=== PATIENT | female | born 1945 | race Caucasian/White ===

== ENCOUNTER 2018-03-21 10:57 | Outpatient (CLI) | payer BC | END 2018-03-21 10:58 | disposition home or self-care (01) | LOC: BICMAMMO 10:57 | PROVIDERS: ATTEND Family Medicine | DX: Z12.31 Encounter for screening mammogram for malignant neoplasm of breast (principal); Z80.3 Family history of malignant neoplasm of breast | CPT/HCPCS: 77063; 77067 ==

== ENCOUNTER 2018-06-17 14:02 | Outpatient (CLI) | payer BC ==
[~2018-06-17 14:02] MED LIST: Iopamidol 370 76% 100 ML VIAL ONE
--- NOTE | 2018-06-17 17:39 | CT ---
CT ABDOMEN WITH AND WITHOUT CONTRAST CT PELVIS WITH AND WITHOUT CONTRAST: (CT UROGRAM) Date: 06/17/18 HISTORY: 73-year-old female with history of both gross and microscopic hematuria. Dr. Miller reported the right renal tumor by telephone to Dr. Justin Del Castillo at 1556 hours on 06/17/18. TECHNIQUE: Precontrast, nephrographic/venous phase, and excretory/pyelographic stage, scans of entire abdomen an d pelvis. FINDINGS: There is an approximately 4.5 x 5 x 5 cm solid soft tissue density mass filling the right renal upper and mid poles of the renal sinus, with densities of approximately 45 HU precontrast, 85 HU nephrogra phic/venous phase, and washout during excretory phase with density of 70 HU. The mass has lobular mar gins. No associated calcifications. There is a 4.5 x 3.5 x 3 cm right renal upper pole cyst, which is partially distorted by that renal m ass. No hydronephrosis bilaterally. No renal, ureteral, or bladder calculus. Mild irregularity of the mucosal surface of the urinary bladder diffusely. 4.5 cm cyst at dome of right lobe of liver. No other hepatic abnormality. Pancreas, adrenals, abdomin al aorta, spleen, and left kidney, and appendix demonstrate no major pathology. Numerous diverticula throughout the entire colon. No small bowel dilation. No retroperitoneal lymphadenopathy. The right r enal vein drapes anterior to the lower portion of the right renal upper pole cyst. It does not appear to be occluded; no evidence of tumor thrombus. No free fluid or free air. Absent uterus. Enlarged left L5 transverse process pseudoarticulates with left S1 ala, and there are high grade dege nerative changes at that pseudoarticulation. IMPRESSION: 1. Approximately 5 cm solid, neoplastic right renal mass, very suspicious for renal cell carcinoma. 2. 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 CODE CR.
== END 2018-06-17 14:03 | disposition home or self-care (01) ==
LOC: BICCT 14:02
PROVIDERS: ATTEND Urology
DX: R31.0 Gross hematuria (principal); R31.29 Other microscopic hematuria; N28.89 Other specified disorders of kidney and ureter; M47.897 Other spondylosis, lumbosacral region
CPT/HCPCS: 74178; 82565

== ENCOUNTER 2018-07-01 20:23 | Emergency (ER) | payer BC, MEDICARE ==
[2018-07-01 21:10] LABS: Bilirubin Small (Negative); Blood, Urine Large (Negative); Clarity Cloudy (Clear); Glucose, Urine (Dipstick) Negative (Negative)
[2018-07-01 21:11] LABS: Nitrite Unable to Interpret (Negative)
[2018-07-01 21:12] LABS: Leukocyte Small (Negative); Protein, Urine (Dipstick) 100 mg/dL (Neg-Trace)
[2018-07-01 21:13] LABS: Pathc Cast-AUWi Flag 23.84 (0-2.49)
[2018-07-01 21:14] LABS: RBC/HPF GREATER THAN 50-TNTC HPF (0-3)
[2018-07-01 21:15] LABS: Bacteria/HPF 1+ HPF (None Seen); Hyaline Casts/LPF NONE SEEN LPF (0-3 Hyaline); Squamous Epithelial 0-3 HPF (0-3)
[2018-07-01 21:27] LABS: #Basophils 0.1 thou/uL (0.0-0.2); #Eosinphils 0.1 thou/uL (0.0-0.7); #Lymphocytes 1.9 thou/uL (1.20-3.40); #Monocytes 0.4 thou/uL (0.11-0.59); #Neutrophils 4.1 thou/uL (1.40-6.50); %Basophils 0.9 % (0.0-1.0); %Eosinophils 1.7 % (0.0-10.0); %Lymphocytes 28.6 % (21.0-51.0); %Monocytes 6.6 % (0.0-10.0); %Neutrophils 62.2 % (42.0-75.0); Hemoglobin 14.1 g/dL (12.0-16.0); Mean Corpuscular HGB CONC 32.1 g/dL (32.0-36.0); Mean Corpuscular Hemoglobin 27.2 pg (27.0-31.0); Mean Corpuscular Volume 84.8 fL (78.0-98.0); Mean Platelet Volume 7.7 fL (7.4-10.4); Platelet Count 262 thou/uL (130-400); RBC Distribution Width 12.1 % (11.5-14.5); Red Blood Cell (RBC) Count 5.18 mill/uL (4.20-5.40); White Blood Cell (WBC) Count 6.6 thou/uL (4.8-10.8)
[2018-07-01 21:56] LABS: ALT (SGPT) 13 U/L (8-55); AST (SGOT) 16 U/L (5-34); Albumin 4.2 g/dL (3.4-4.8); Alkaline Phosphatase 73 U/L (40-150); Anion Gap 14 mmol/L (10-20); BUN (Urea Nitrogen) 18 mg/dL (9.8-20.1); Bilirubin, Total 0.4 mg/dL (0.2-1.2); Calc. Creatinine Clearance 0 mL/min (70-130); Carbon Dioxide 23 mmol/L (23-31); Chloride 108 mmol/L (98-107); Estimated GFR-MDRD 64; Globulin 3.4 g/dL (2.4-3.5); Glucose 164 mg/dL (83-110); Potassium 3.6 mmol/L (3.5-5.1); Protein, Total 7.6 g/dL (6.0-8.3); Sodium 141 mmol/L (136-145)
== END 2018-07-01 23:45 | disposition left against medical advice (07) ==
LOC: ERS 20:23
DX: R33.9 Retention of urine, unspecified (principal); R31.9 Hematuria, unspecified; C64.9 Malignant neoplasm of unspecified kidney, except renal pelvis; E11.9 Type 2 diabetes mellitus without complications; I10 Essential (primary) hypertension; E78.00 Pure hypercholesterolemia, unspecified; F32.9 Major depressive disorder, single episode, unspecified; Z79.899 Other long term (current) drug therapy; Z79.84 Long term (current) use of oral hypoglycemic drugs
CPT/HCPCS: 51702; 80053; 81003; 81015; 85025; 87086

== ENCOUNTER 2019-01-14 12:39 | Observation (INO) | payer BC, MEDICARE ==
[2019-01-14] MEDS ORDERED: Aspirin Chewable 81 MG TAB ONE (13:26)
[2019-01-14] MEDS ORDERED: Magnesium 2 GM/50 ML BAG (IN WATER) ONE (13:26)
[2019-01-14] MEDS ORDERED: Digoxin 0.5 MG/2 ML AMP ONE (13:29)
[2019-01-14 13:40] LABS: #Eosinphils 0.2 thou/uL (0.0-0.7); #Lymphocytes 1.4 thou/uL (1.20-3.40); #Monocytes 0.4 thou/uL (0.11-0.59); #Neutrophils 3.8 thou/uL (1.40-6.50); %Basophils 0.2 % (0.0-1.0); %Eosinophils 3.8 % (0.0-10.0); %Lymphocytes 23.7 % (21.0-51.0); %Monocytes 7.6 % (0.0-10.0); %Neutrophils 64.7 % (42.0-75.0); Hemoglobin 12.9 g/dL (12.0-16.0); Mean Corpuscular HGB CONC 32.5 g/dL (32.0-36.0); Mean Corpuscular Hemoglobin 26.1 pg (27.0-31.0); Mean Corpuscular Volume 80.3 fL (78.0-98.0); Mean Platelet Volume 7.7 fL (7.4-10.4); Platelet Count 261 thou/uL (130-400); RBC Distribution Width 14.9 % (11.5-14.5); Red Blood Cell (RBC) Count 4.94 mill/uL (4.20-5.40); White Blood Cell (WBC) Count 5.8 thou/uL (4.8-10.8)
--- NOTE | 2019-01-14 13:54 | RAD ---
AP view chest. HISTORY: Chest pain. AP view chest is obtained. Degenerative changes seen in the left shoulder. The lungs are well aerated. No evidence of active intrathoracic disease seen. No evidence of effusion s pneumonia or pneumothorax seen. Cardiomegaly noted. IMPRESSION: Unremarkable AP view chest.
[2019-01-14 14:02] LABS: ALT (SGPT) 13 U/L (8-55); AST (SGOT) 14 U/L (5-34); Albumin 3.9 g/dL (3.4-4.8); Alkaline Phosphatase 108 U/L (40-150); Anion Gap 16 mmol/L (10-20); BUN (Urea Nitrogen) 18 mg/dL (9.8-20.1); Bilirubin, Total 0.4 mg/dL (0.2-1.2); CK (CPK) 42 U/L (29-168); Calc. Creatinine Clearance 0 mL/min (70-130); Calcium 9.8 mg/dL (7.8-10.44); Carbon Dioxide 23 mmol/L (23-31); Chloride 99 mmol/L (98-107); Estimated GFR-MDRD 46; Globulin 3.5 g/dL (2.4-3.5); Glucose 118 mg/dL (83-110); Lipase 30 U/L (8-78); Potassium 4.1 mmol/L (3.5-5.1); Protein, Total 7.4 g/dL (6.0-8.3); Sodium 134 mmol/L (136-145)
[2019-01-14 14:22] LABS: CKMB 0.8 ng/mL (0-6.6)
[2019-01-14] MEDS ORDERED: Diltiazem 125 MG in Sodium Chloride 0.9% 100 ML IVPB SCH ×3 (14:30→20:50)
[2019-01-14 15:54] LABS: Bilirubin Negative (Negative); Blood, Urine Negative (Negative); Clarity CLEAR (Clear); Glucose, Urine (Dipstick) Negative (Negative); Leukocyte Small (Negative); Nitrite Negative (Negative); Protein, Urine (Dipstick) Negative (Neg-Trace); Specific Gravity, Urine 1.009 (1.002-1.036); Urobilinogen 0.2 mg/dL (0.2-1.0); pH, Urine 5.5 (5.0-9.0)
[2019-01-14 15:56] LABS: Bacteria/HPF None Seen HPF (None Seen); Hyaline Casts/LPF 0-3 HYALINE CAST LPF (0-3 Hyaline); Pathc Cast-AUWi Flag 0.54 (0-2.49); RBC/HPF 0-3 HPF (0-3); Squamous Epithelial 0-3 HPF (0-3)
--- NOTE | 2019-01-14 16:03 | CT ---
Contrast-enhanced CTA chest. HISTORY: Tachycardia patient complaining of chest tightness There is a large sliding hiatal hernia. No evidence of filling defects seen in the pulmonary arteries to suggest pulmonary emboli. No definite evidence of lung parenchymal lesions seen. Some lung lung emphysematous changes are noted . No evidence of hilar lymphadenopathy seen. Hepatic hypodense lesion likely representing a cyst is present. Adrenal glands unremarkable. The patient's had a previous right-sided nephrectomy. IMPRESSION: 1: No evidence of pulmonary emboli. 2: Hiatal hernia.
[2019-01-14] MEDS ORDERED: ISOVUE-370 76%-LOCM 1 ML ONE (16:53)
[2019-01-14] MEDS ORDERED: cefTRIAXone\\ROCEPHIN 1 GM VIAL ONE (17:01)
[2019-01-14] MEDS ORDERED: Acetaminophen 325 MG TAB PO PRN (17:26)
--- NOTE | 2019-01-14 18:24 | HP ---
CHIEF COMPLAINT: Chest tightness. HISTORY OF PRESENT ILLNESS: This is a 73-year-old female with history of kidney cancer, status post nephrectomy in September 2018; SVT, status post ablation; diabetes; hypertension, who presents to the emergency room with a complaint of rapid heart rate and chest tightness. She reports the onset today around 9:00 a.m. and states it felt similar to SVT in the past. The patient reports initially noticing her heart rate was around 98, and then as she monitored it, it kept going up to 110 and eventually up to the 160s. She had family members drive her to the emergency room. Since her ablation, she has had no further episodes of SVT and estimates that was 1 to 2 years ago. She had chills last night, but denies any fevers. She also denies any precipitants or relieving factors. The patient has a history of atrial fibrillation that was evaluated and managed at [facility] and attributed to a urinary tract infection. This was in July of 2018. She denies any dysuria, urgency, frequency, or hematuria. In the past, her daughter notes that her symptoms of UTI have been confusion and chills rather than the typical UTI symptoms. The patient did not require any medication following that hospitalization after treatment of the UTI. The patient is followed by Dr. Varner of Cardiology for hypertension, reports her blood pressures have been well controlled on lisinopril and amlodipine. In the emergency room, the patient was found to be in atrial fibrillation with RVR and heart rate of 175. She received diltiazem 10 mg IV followed by a 10 mg/hour drip, digoxin 0.5 mg IV, 1 L normal saline, aspirin 324 mg, and 1 g of Rocephin for UTI. Hospitalist called for admission. ALLERGIES: STATINS WHICH CAUSE MUSCLE PAIN. CURRENT MEDICATIONS: Reconciled with the list provided by the patient. 1. Metformin 500 mg b.i.d. 2. Lisinopril 20 mg daily. 3. Amlodipine 2.5 mg daily. 4. Allopurinol 100 mg daily. 5. Tylenol Arthritis 2 tablets, morning and night. REVIEW OF SYSTEMS: Significant for chills last night, all over joint pain, the patient attributes this to a trial drug that she was on prior to her nephrectomy for kidney cancer, states she was on the medication for 6 to 7 weeks and stopped it before her September surgery. She does report that this has persisted, it is all over and worse in the past 3 days was worse. She denies any nausea, vomiting, abdominal pain, or typical UTI symptoms. Rash on her chest and back that was also attributed to the trial medication. All remaining review of systems are reviewed and negative. PAST MEDICAL HISTORY: 1. Hypertension. 2. Diabetes mellitus type 2. 3. History of SVT, status post ablation. 4. Kidney cancer, status post nephrectomy in September 2018. 5. Gout. 6. UTI PAST SURGICAL HISTORY: 1. Tonsillectomy. 2. Bladder repair. 3. Hysterectomy. 4. Cardiac ablation for SVT. 5. Bilateral carpal tunnel release. 6. Right nephrectomy secondary to kidney cancer in September 2018. SOCIAL HISTORY: The patient uses alcohol weekly, lives alone, is a full code, and her surrogate decision maker is her daughter, Chely. She denies any tobacco. FAMILY HISTORY: Significant for dad who also had kidney cancer in his 80s. PHYSICAL EXAMINATION: VITAL SIGNS: Blood pressure is 96/68, pulse 88, respirations 17, temperature 98.1, saturations 93% on room air. GENERAL: Awake, alert, responsive, in no apparent distress. Able to speak in full sentences. HEENT: Tympanic membranes translucent. Oral mucosa is pink and moist. NECK: Supple, nontender. LYMPHATICS: No palpable cervical or supraclavicular lymphadenopathy. LUNGS: Clear to auscultation bilateral. No audible wheezing, rhonchi, or rales. HEART: Normal S1 and S2. Regular rate and rhythm. No audible murmurs. ABDOMEN: Soft. Present bowel sounds. Nontender, nondistended. EXTREMITIES: No clubbing, cyanosis, or edema. SKIN: She does have erythematous papules and plaques scattered along her chest and upper back. No tenderness to palpation. No fluctuance or drainage. PSYCH: Euthymic NEURO: No focal deficits DIAGNOSTIC DATA: Chest x-ray was personally reviewed, no acute process for this AP view. CT angiogram of the chest is negative for PE, it does show a hiatal hernia. EKG shows a left axis deviation, atrial fibrillation with RVR and a rate of 175 and a right bundle branch block. Telemetry monitoring now shows sinus rhythm and rate of 80s. LABORATORY DATA: Reviewed today. CBC: 5.8, 12.9, 39.6, 261. D-dimer was 1.8. Chemistry: 134, 4.1, 99, 23, 18, 1.16, 118. LFTs normal. Troponin 0.036 and BNP 157. CK 42, MB 0.8. Urinalysis shows small leukocyte esterase, 11 to 20 white blood cells. IMPRESSION: 1. Atrial fibrillation with rapid ventricular response in a patient with a prior history of this, now converted to sinus rhythm after diltiazem drip and digoxin IV. 2. Likely urinary tract infection based on history and abnormal UA. 3. Mildly elevated creatinine, only slightly different from last check in October. 4. History of kidney cancer, status post nephrectomy. 5. Diabetes mellitus type 2. 6. Gout, asymptomatic. 7. Chronic skin rash. 8. Chronic joint pain. 9. Mildly indeterminate troponin, we will trend this. PLAN: 1. Observation status in the hospital given that the patient has converted to sinus rhythm. 2. Continue Rocephin and follow the urine culture. 3. Titrate off diltiazem and start oral medication. 4. Echocardiogram and Cardiology consultation. Hold on full anticoagulation given less than 48 hours of tachycardia. 5. Holding further digoxin for now and monitoring on telemetry. 6. Holding both her lisinopril and amlodipine and monitoring her blood pressures which are on the low side of normal. We will need to determine appropriate blood pressure medication as well as medication to help maintain her sinus rhythm. 7. We will hold the metformin for now, but continue the allopurinol. 8. Tylenol as needed for pain. 9. We will need followup with her primary care provider with regard to the chronic rash and chronic pain. 10. DVT prophylaxis. The patient is ambulatory. We will use SCDs. 11. GI prophylaxis not indicated. 12. Code status is full. Surrogate decision maker is her daughter as noted above. 13. Reviewed the plan of care with patient and her family. No questions or further needs at end of evaluation. 14. The patient is at high risk given age, comorbidities, and current presentation. Job ID: [id number] MTDD
[2019-01-14 18:29] LABS: Troponin I 0.036 ng/mL (< 0.028)
[2019-01-14 19:19] VITALS: BMI 28.3
--- NOTE | 2019-01-14 20:51 | PDOC.EVN ---
Event Note - Event Note Event Note: Pt remains in sinus rhythm, bp has improved to the 120's. Will decrease diltiazem to 2.5 mg/hr now and then stop in 1 hour, start 30 mg short acting diltiazem q6h. 9:20 pm - pt c/o pain not relieved with tylenol, reports she occasionally takes tramadol at home. Will order prn low dose tramadol for use here.
[2019-01-14 21:15] LABS: Troponin I 0.037 ng/mL (< 0.028)
[2019-01-14] MEDS: traMADol HCl 50 MG TAB PO PRN (21:40)
[2019-01-15 05:34] LABS: #Eosinphils 0.2 thou/uL (0.0-0.7); #Monocytes 0.3 thou/uL (0.11-0.59); %Basophils 0.3 % (0.0-1.0); %Eosinophils 5.9 % (0.0-10.0); %Lymphocytes 28.3 % (21.0-51.0); %Monocytes 9.2 % (0.0-10.0); %Neutrophils 56.3 % (42.0-75.0); Hemoglobin 10.8 g/dL (12.0-16.0); Mean Corpuscular HGB CONC 32.6 g/dL (32.0-36.0); Mean Corpuscular Hemoglobin 26.2 pg (27.0-31.0); Mean Corpuscular Volume 80.5 fL (78.0-98.0); Mean Platelet Volume 7.6 fL (7.4-10.4); Platelet Count 209 thou/uL (130-400); RBC Distribution Width 14.7 % (11.5-14.5); Red Blood Cell (RBC) Count 4.13 mill/uL (4.20-5.40); White Blood Cell (WBC) Count 3.5 thou/uL (4.8-10.8)
[2019-01-15 05:52] LABS: Anion Gap 11 mmol/L (10-20); BUN (Urea Nitrogen) 18 mg/dL (9.8-20.1); Calc. Creatinine Clearance 63 mL/min (70-130); Calcium 8.7 mg/dL (7.8-10.44); Carbon Dioxide 25 mmol/L (23-31); Chloride 103 mmol/L (98-107); Estimated GFR-MDRD 58; Glucose 100 mg/dL (83-110); Potassium 3.7 mmol/L (3.5-5.1); Sodium 135 mmol/L (136-145)
[2019-01-15] MEDS: traMADol HCl 50 MG TAB PO PRN (08:54)
[2019-01-15] MEDS ORDERED: Allopurinol 100 MG TAB PO SCH (09:00)
--- NOTE | 2019-01-15 11:46 | CON ---
DATE OF CONSULTATION: PRIMARY CARE DOCTOR: Dr. Lopez. PRIMARY IMMIGRATION CASE MANAGER: Jona Varner MD PROPERTY PRESERVATION SPECIALIST: "I do not know." ONCOLOGY DOCTOR: At [facility], [place], [place]. REASON FOR CARDIOLOGY CONSULT: Atrial fibrillation with rapid ventricular response. HISTORY OF PRESENT ILLNESS: Ms. Kaur is a 73-year-old female with significant history of right kidney cancer with nephrectomy in September 2018, hypertension, and history of SVT with ablation by Dr. Posada in October 2016. Yesterday in the morning, she started feeling weak. Her blood pressure was stable, but the patient's heart rate was 90, which the patient's normal heart rate was 80s and couple of hours later, she recheck her vital signs, which the patient heart rate showing 115 and 130. Because of due to those reason, the patient decided to present to the Emergency Department and the patient was found to have atrial fibrillation with rapid ventricular response. A 12-lead EKG at the Emergency Department shows atrial fibrillation with heart rate 175. Diltiazem drip was started at the ER, but when at the time, the patient was transferred to the observation unit, the patient was already converted back to sinus rhythm. The diltiazem drip was stopped due to the hypotension. The patient has been in sinus rhythm since the patient is in observation unit. According to the patient, the patient has 1 episode of atrial fibrillation with rapid ventricular response in September 2018 when she had a biopsy at [facility] at that time, she bleed a lot after the biopsy, the patient's blood pressure went really hypotensive and then, the patient was transferred to ICU due to atrial fibrillation with rapid ventricular response. The patient was found to have the UTI at the same time. The episode did not last more than 24 hours. The patient was discharged from [facility] without any antiarrhythmia medication, beta-aruna, or anticoagulant. Since then, she was doing well till this admission. The patient had echocardiograms done in October [address] Varner's office, which shows EF of 55% to 60%, grade 1 diastolic dysfunction, mild mitral valve regurgitation, and moderate tricuspid regurgitation. There are no record that she had any other cardiac workup at this moment and the patient underwent SVT ablation by Dr. Posada in October 2016. Prior to the episode and during the initial cardiac assessment, the patient denies chest pain, discomfort, heaviness, tightness in her chest, palpitation, fluttering, dizziness, lightheadedness, or any other cardiac complaints. She never had a blood in the stool or urine. PAST MEDICAL HISTORY: Hypertension, hyperlipidemia which resolved once she has lost weight in September 2018, diabetes type 2, right kidney cancer, SVT, and history of UTI. She has a gout too. PAST SURGICAL HISTORY: SVT ablation and defibrillator in 2017, bladder repair, partial hysterectomy, right nephrectomy in September 2018, and bilateral carpal tunnel repair. FAMILY HISTORY: There is significant history of SVT in her family. Her sister, brother, and one of her daughter has a history of SVT. The patient father with kidney cancer. SOCIAL HISTORY: She is . She has four children, who live well. One of daughter has a history of SVT. She denied tobacco, or illicit drug abuse. She drinks one beer or 1 mug or liter per week. She used to exercise prior to right nephrectomy in September 2018. Since then, she has not had any exercise due to worsening of her arthritis secondary to the new experimental chemotherapy since September 2018. She drinks one cup of coffee a day. She has tried to be active at home. ALLERGIES: NO KNOWN DRUG ALLERGIES. MEDICATIONS: The patient home medications; 1. Carmen D one tablet once a day as needed. 2. Metformin 500 mg twice a day. 3. Lisinopril 20 mg once a day. 4. Amlodipine 2.5 mg once a day. 5. Allopurinol 100 mg once a day. REVIEW OF SYSTEMS: A 12-point review of systems negative unless otherwise mentioned in the HPI. She has an arthritis like pain to the right shoulder in the bilateral lower extremities. PHYSICAL EXAMINATION: VITAL SIGNS: Blood pressure 119/59, temperature 98.2, pulse is 77 and sinus rhythm, respiratory rate 16, and O2 saturation 93% on room air. GENERAL: The patient is alert and oriented x4, nonfocal, not in acute distress. HEENT: Head, normocephalic and atraumatic. Eyes, extraocular muscle movement intact. ENT and mouth, she has a lesion to the lower lip, but dry. No bleeding. NECK: Supple. Normal range of motion. No JVD. RESPIRATORY: Clear to auscultate bilaterally. No wheezing, rales, or rhonchi noted. CARDIOVASCULAR: Regular rate and rhythm. Normal S1 and S2. There are no other S3 or S4. No significant murmur, hives, or thrill noted. 2+ pulses in bilateral upper and lower extremities. No edema in the lower extremities. Carotid pulses are present without bruit or thrill. ABDOMEN: Soft and nontender. No mass to palpitate. Bowel sounds are present. SKIN: Warm and dry. No lesion, rash, or erythema noticed. MUSCULOSKELETAL: The patient is able to move all extremities without difficulty. The patient denied claudication. NEUROLOGIC: The patient is alert and oriented x4. Nonfocal. PSYCHIATRIC: The patient's mood is appropriate. LABORATORY DATA: WBC 3.5, hemoglobin 10.8, hematocrit 33.2, and platelets 209. D-dimer 1.80. The patient's CT chest showing no pulmonary emboli. Sodium 135, potassium 3.7, BUN 18, creatinine 0.95, glucose 100, lactic acid 2.0, AST 14, and ALT 13. CK-MB 0.8, troponin is 0.036, 0.036, 0.037, and BNP is 157.6. UA negative. Chest x-ray shows no acute pulmonary process. ASSESSMENT AND PLAN: 1. Atrial fibrillation with rapid ventricular response, which she converted back to sinus rhythm within the last 24 hours. Diltiazem drip was stopped due to hypotensive. She is not on any antiarrhythmic medication such as oral beta-aruna or diltiazem. We would like to go ahead to start diltiazem medication 60 mg 3 times a day. We are going to adjust the patient's blood pressure medication and start Eliquis 5 mg twice a day for anticoagulant. The patient is going to be discharged today. We will recommend the patient to have the stress test and event monitor as an outpatient at Dr. Varner's office. The patient is going to be following up with Dr. Varner's hopefully next week. 2. Hypertension. The patient's blood pressure is stable at this moment. Again, since we are going to prescribe the diltiazem, we would like to adjust the patient's blood pressure medication. We are going to recommend the patient to keep continued checking and recording her vital signs at least twice a day till she is going to follow up with Dr. Varner's office or Dr. Lopez's, the patient's primary care doctor. 3. History of supraventricular tachycardia with a history of ablation in 2017. At this moment, the patient's condition is stable. At this moment, we would like to continue to monitor. 4. Diabetes type 2, which has been deferred to the patient's primary care doctor. 5. Anemia with no etiology. At this moment, the patient does not have any dizziness, lightheadedness, fatigue, or any other complaints. Recommend to recheck the patient's blood count within a couple of weeks. Thank you very much for allowing the Cardiology Service to participate in the care of this patient. From cardiac standpoint, the patient is stable enough to discharge today and the patient is going to have a stress test and event monitor as an outpatient at Dr. Varner's office. Job ID: [id number]
[2019-01-15 12:03] VITALS: BP 100/53; TEMP 98.4
--- NOTE | 2019-01-15 17:16 | CON ---
DATE OF CONSULTATION: 01/15/2019 INDICATION FOR CONSULTATION: A 73-year-old female with atrial fibrillation. HISTORY OF PRESENT ILLNESS: This is a very pleasant 73-year-old female, who has had a history in the past of SVT and underwent an ablation of SVT. She has had 1 episode of atrial fibrillation after undergoing a nephrectomy for renal cell cancer in [place] earlier this year. She then did quite well, did resolve, and then yesterday, she started feeling lightheaded. She notes her heart was beating somewhat fast and then she also had some chest pressure, and she presented to the emergency room and was found to be in atrial fibrillation with rapid ventricular response. She was given medications in the emergency room. After being given IV diltiazem, she then after 1 or 2 hours returned back to sinus rhythm. She has remained in sinus rhythm, and she has had no further symptoms. She has not had any recent stress test. She has had an echocardiogram just 1 or 2 months ago, and apparently, this was unremarkable. She had an ejection fraction of 55% to 60% with grade 1 diastolic dysfunction with moderate tricuspid valve regurgitation and mild mitral valve regurgitation. She has been doing very well otherwise, and the only concern is that she did have some chest discomfort, some pressure with the atrial fibrillation making it somewhat suspicious for underlying coronary artery disease as an etiology of atrial fibrillation. Her cardiac enzymes were indeterminate. Her troponin I was 0.036 and then again was 0.037. She has had no further symptoms. She wants to go home and have outpatient stress testing. I believe she is stable for this. We will start her on Eliquis to decrease the risk of her having embolic phenomenon should she have further episodes of atrial fibrillation. Also, we will suggest that she have an event monitor. This can also be done as an outpatient. Next, we will try to also start her on diltiazem in hopes that the atrial fibrillation will not return. When she is seen in the outpatient setting, then we can decide whether or not she needs further medications or whether or not she may need to be seen by the mobile plant operators for further evaluation or possible ablation of the atrial fibrillation. On review of the EKG when she was in the emergency room, she also has a right bundle-branch block. I am uncertain whether or not that is a new finding, but it did appear to be that she was in atrial fibrillation and not SVT. The right bundle-branch block is not new. She has had this at least since 2017, on review of the records and the old EKGs. PAST MEDICAL HISTORY: Please refer the notes dictated by the nurse practitioner. SOCIAL HISTORY: Please refer the notes dictated by the nurse practitioner. FAMILY HISTORY: Please refer the notes dictated by the nurse practitioner. REVIEW OF SYSTEMS: Please refer the notes dictated by the nurse practitioner. MEDICATIONS: Please refer the notes dictated by the nurse practitioner. ALLERGIES: PLEASE REFER THE NOTES DICTATED BY THE NURSE PRACTITIONER. PHYSICAL EXAMINATION: GENERAL: Reveals a well-developed, well-nourished, very pleasant female, who is in no acute distress at this time. She is alert. She is oriented. VITAL SIGNS: Stable. Blood pressure is 119/59, heart rate in 70s and regular, O2 saturation is 93%. She is afebrile. Respiratory rate is 16. HEENT: Shows head to be normocephalic and atraumatic. NECK: Carotid pulses are present. There were no bruits. CHEST: Clear to auscultation without rales, rhonchi, or wheezing. CARDIOVASCULAR: Reveals a regular rate and rhythm. Normal S1 and S2. There is no S3 or S4. There were no significant murmurs, heaves, thrills, bruits, or rubs. ABDOMEN: Soft and nontender. Positive bowel sounds are present. EXTREMITIES: Showed no clubbing, cyanosis, or edema. Pedal pulses are present. NEUROLOGIC: She appears to be fully intact. There were no gross focal motor deficits. SKIN: Warm and dry. IMPRESSION: Atrial fibrillation. This may be intermittent atrial fibrillation caused by undue stress and fatigue. Also, she has had significant arthritis and pain after having chemotherapy prior to undergoing her nephrectomy, but given her history of hypertension and diabetes, she may certainly have underlying coronary artery disease as an etiology of the atrial fibrillation. I have advised her to undergo stress testing, and should the stress test be found to be abnormal, she will need to undergo further evaluation by cardiac catheterization. In the interim, we will start her on Eliquis as well as diltiazem to decrease the risk of embolic phenomenon and also to decrease the risk of further episodes of atrial fibrillation. As far as her other medical problems, please refer to the notes already dictated by the nurse practitioner. We will plan for discharge today, but also suggest that she have an event monitor in the future to determine whether or not she is having any further atrial fibrillation burden. Job ID: [id number]
[2019-01-15] MEDS ORDERED: cefTRIAXone\\ROCEPHIN 1 GM in Sodium Chloride 0.9% 100 ML IVPB SCH (17:30)
[2019-01-15] MEDS ORDERED: Apixaban 5 MG TAB PO SCH (21:00)
--- NOTE | 2019-01-16 00:57 | DIS ---
DATE OF ADMISSION: 01/14/2019 DATE OF DISCHARGE: 01/15/2019 [facility] CONSULTANTS: Dr. Ann, ardiology. DISCONTINUED MEDICATIONS: 1. Allergra-D. 2. Lisinopril and amlodipine as these have been replaced by diltiazem. MEDICATIONS: Medications are reconciled at discharge. Medications to continue: 1. Allopurinol 100 mg daily. 2. Metformin 500 mg b.i.d. with meals. New medications: 1. Diltiazem 30 mg 4 times daily. Prescription provided for 120 tablets/thirty days, further refills from Dr. Varner. 2. Eliquis 5 mg p.o. b.i.d., prescription for 60 tablets, further refills from Dr. Varner. 3. Aspirin 81 mg one daily. 4. Cefdinir 300 mg b.i.d. for 4 days starting today. Changed medications are none. DISCHARGE DIAGNOSES: 1. Atrial fibrillation with rapid ventricular response, resolved. 2. Urinary tract infection. 3. Anemia and leukopenia, mild. 4. Hyponatremia, mild. SECONDARY DIAGNOSES: 1. History of kidney cancer status post nephrectomy. 2. Diabetes mellitus type 2. 3. Gout. 4. Hiatal hernia. FOLLOWUP: 1. Followup is with Dr. Varner within a week for anticipated stress test and appointment. 2. Follow up with Dr. Lopez within 1-3 days to review the urine culture result, which is not yet final, address any health concerns and evaluate overall health. HISTORY OF PRESENT ILLNESS: Ms. Kaur is a 73-year-old female with the above medical problems, who presented to the emergency room for chest tightness and rapid heart rate. She was found to be in atrial fibrillation with rapid ventricular response and received IV diltiazem followed by a drip as well as IV digoxin. She converted back to normal sinus rhythm in the emergency room and was admitted for further evaluation. She also had an abnormal urinalysis and received 1 g of Rocephin. HOSPITAL COURSE: The patient maintained sinus rhythm during this hospitalization and she was transitioned from the IV diltiazem to oral. Her rate has been in the 70s to 80s. She was evaluated by Cardiology with recommendation for an outpatient stress test with her primary entry level finance, Dr. Varner. In the meantime, she is being started on low-dose aspirin as cardioprotection as well as full-dose anticoagulation with Eliquis to reduce the risk of stroke associated with atrial fibrillation. The patient's blood pressures have been in the 100s to 110 systolic; therefore, her home amlodipine and lisinopril are both being discontinued at discharge, and neither were used during this hospitalization. The patient is overall feeling well. Denies any lightheadedness or dizziness. She is ambulating, taking p.o. and meets criteria for discharge to home. PHYSICAL EXAMINATION: VITAL SIGNS: Blood pressure 100/56, temp 98.6, pulse 76, respirations 16, sats 96% on room air. GENERAL: Awake, alert, responsive, in no apparent distress. Able to speak in full sentences. LUNGS: Clear to auscultation bilateral. Heart is 2/6 systolic ejection murmur. ABDOMEN: Soft. Present bowel sounds. Nontender, nondistended. EXTREMITIES: No pitting edema. KIRKPATRICK FINDINGS AND TEST RESULTS: CBC; 3.5, 10.8, 33.2, 209. Renal panel; 135, 3.7, 103, 25, 18, 0.95, 100. Troponin 0.036, 0.036, 0.037. LFTs are normal. Urinalysis showed small leukocyte esterase, 11-20 white blood cells. Urine culture, no growth at 12 hours. Blood cultures negative x2. CT angiogram performed due to elevated D-dimer, which shows no evidence of PE; present hiatal hernia. Chest x-ray unremarkable AP view of the chest. DIET: Heart healthy. ACTIVITY: As tolerated. The patient advised to go slow when changing positions to avoid any orthostatic symptoms/becoming lightheaded or dizzy. Reviewed with the patient in this hospitalization, the change in her medications , the risks and benefits of full-dose anticoagulation, the importance of followup with both Dr. Lopez and Dr. Varner, and to seek care/return for care precautions. She demonstrates understanding. TIME SPENT: Total time coordinating discharge is 30 minutes. Job ID: [id number] MTDD
[2019-01-16] MEDS ORDERED: Aspirin 81 mg Enteric Coated Tablet PO SCH (09:00)
== END 2019-01-15 12:15 | disposition home or self-care (01) ==
LOC: ERS 12:39 → 2SW 15:47
PROVIDERS: ADMIT Family Medicine; ATTEND Family Medicine
DX: I48.91 Unspecified atrial fibrillation (principal); N39.0 Urinary tract infection, site not specified; D64.9 Anemia, unspecified; D72.819 Decreased white blood cell count, unspecified; E87.1 Hypo-osmolality and hyponatremia; M10.9 Gout, unspecified; K44.9 Diaphragmatic hernia without obstruction or gangrene; I10 Essential (primary) hypertension; E11.9 Type 2 diabetes mellitus without complications; G89.29 Other chronic pain; M25.50 Pain in unspecified joint; R21 Rash and other nonspecific skin eruption; R79.89 Other specified abnormal findings of blood chemistry; Z79.84 Long term (current) use of oral hypoglycemic drugs; Z79.899 Other long term (current) drug therapy; Z88.8 Allergy status to other drugs, medicaments and biological substances
CPT/HCPCS: 36415; 36416; 71045; 71275; 80048; 80053; 81003; 81015; 82550; 82553; 83605; 83690; 83880; 84443; 84484; 85025; 85379; 87040; 87086; 93005; 93306; 96365; 96366; 96367; 96375; 96376; G0378; J0696; J1160; J3475; J3490; Q9966

== ENCOUNTER 2019-01-30 08:59 | Outpatient (CLI) | payer BC ==
--- NOTE | 2019-01-30 09:44 | RAD ---
Exam: XR Hand Lt 3 View STANDARD HISTORY: Polyarthritis, hyperuricemia. COMPARISON: None FINDINGS: There is prominent osteoarthritis involving the distal interphalangeal joints No acute fracture, dislocation, or other acute osseous abnormality is identified. IMPRESSION: 1. 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 No acute osseous abnormality seen.
--- NOTE | 2019-01-30 10:25 | RAD ---
LUMBAR SPINE 2 VIEWS: HISTORY: Polyarthritis, hyperuricemia, bilateral leg pain. FINDINGS: A transitional vertebra is seen which is labeled L6 for the focus of this discussion. Multilevel deg enerative changes are present with mild levoscoliosis of the lumbar spine. There is minimal anteroli sthesis of L5 over L6. No compression fracture or bony destruction is seen. IMPRESSION: Lumbar spondylosis. POS: T[facility]
--- NOTE | 2019-01-30 10:30 | RAD ---
AP PELVIS 1 VIEW: HISTORY: Polyarthritis, hyperuricemia, arthritis. FINDINGS: Arthrosis and degenerative changes noted involving the hip joints and SI joints as well as some scler osis at the level of the symphysis pubis. No periarticular bony erosive or destructive changes to doyle ggest significant acute inflammatory arthritis. IMPRESSION: Evidence for degenerative change and osteoarthritis. POS: [facility]
--- NOTE | 2019-01-30 10:31 | RAD ---
RIGHT HAND 3 VIEWS: HISTORY: Polyarthritis, hyperuricemia. FINDINGS/IMPRESSION: Arthrosis and degenerative changes, particularly the interphalangeal joints distally of the 2nd, 3rd, and 5th fingers, evidence for osteoarthrosis and degenerative change. No evidence for acute inflamm atory arthritis. POS: T[facility]
== END 2019-01-30 09:00 | disposition home or self-care (01) ==
LOC: BICRAD 08:59
PROVIDERS: ATTEND Internal Medicine Rheumatology
DX: M13.0 Polyarthritis, unspecified (principal); E79.0 Hyperuricemia without signs of inflammatory arthritis and tophaceous disease; M35.3 Polymyalgia rheumatica; M19.041 Primary osteoarthritis, right hand; M16.0 Bilateral primary osteoarthritis of hip; M47.816 Spondylosis without myelopathy or radiculopathy, lumbar region; M19.042 Primary osteoarthritis, left hand; M53.3 Sacrococcygeal disorders, not elsewhere classified
CPT/HCPCS: 72100; 72170

== ENCOUNTER 2019-03-28 15:29 | Outpatient (CLI) | payer BC ==
--- NOTE | 2019-03-28 16:15 | RAD ---
RIGHT FOOT THREE VIEW: 03/28/19 HISTORY: Foot pain, M79.671. COMPARISON: None. FINDINGS: No fracture. No malalignment. Lisfranc interval is maintained. Mild interphalangeal joint space narro wing. Moderate plantar and small dorsa calcaneal spurs. Mild vascular calcifications. IMPRESSION: Mild degenerative changes. No acute osseous abnormality. POS: HOME
== END 2019-03-28 15:30 | disposition home or self-care (01) ==
LOC: BICRAD 15:29
PROVIDERS: ATTEND Internal Medicine Rheumatology
DX: M79.671 Pain in right foot (principal); M19.071 Primary osteoarthritis, right ankle and foot

== ENCOUNTER 2019-07-13 10:27 | Outpatient (CLI) | payer BC ==
--- NOTE | 2019-07-13 11:13 | MMO ---
Bilateral MAMMO Bilat Screen [facility]. CLINICAL HISTORY: Patient is 74 years old and is seen for screening. The patient has the following family history of breast cancer: paternal aunt. The patient has a history of kidney cancer at age 73. VIEWS: The views performed were: bilateral craniocaudal with tomosynthesis and bilateral mediolateral oblique with tomosynthesis. FILMS COMPARED: The present examination has been compared to prior imaging studies performed at [facility] on 03/06/2009, 06/22/2012, 06/29/2014 and 03/21/2018. This study has been interpreted with the assistance of computer-aided detection. MAMMOGRAM FINDINGS: There are scattered fibroglandular densities. There are stable benign appearing calcifications seen in both breasts. There are also vascular calcifications. There are no suspicious masses, suspicious calcifications, or new areas of architectural distortion. IMPRESSION: THERE IS NO MAMMOGRAPHIC EVIDENCE OF MALIGNANCY. A ROUTINE FOLLOW-UP MAMMOGRAM IN 1 YEAR IS RECOMMENDED. THE RESULTS OF THIS EXAM WERE SENT TO THE PATIENT. ACR BI-RADS Category 2 - Benign finding MAMMOGRAPHY NOTE: 1. A negative mammogram report should not delay a biopsy if a dominant of clinically suspicious mass is present. 2. Approximately 10% to 15% of breast cancers are not detected by mammography. 3. Adenosis and dense breasts may obscure an underlying neoplasm. Reported by: KEN ALEXANDRE MD Electonically Signed: [id number]
== END 2019-07-13 10:28 | disposition home or self-care (01) ==
LOC: BICMAMMO 10:27
PROVIDERS: ATTEND Family Medicine
DX: Z12.31 Encounter for screening mammogram for malignant neoplasm of breast (principal); Z80.3 Family history of malignant neoplasm of breast; Z85.528 Personal history of other malignant neoplasm of kidney
CPT/HCPCS: 77063; 77067

== ENCOUNTER 2019-08-23 14:15 | Outpatient (CLI) | payer BC ==
[2019-08-23 15:20] LABS: #Basophils 0.1 thou/uL (0.0-0.2); #Eosinphils 0.1 thou/uL (0.0-0.7); #Lymphocytes 2.1 thou/uL (1.20-3.40); #Monocytes 0.4 thou/uL (0.11-0.59); #Neutrophils 3.7 thou/uL (1.40-6.50); %Basophils 1.1 % (0.0-1.0); %Eosinophils 1.7 % (0.0-10.0); %Lymphocytes 32.5 % (21.0-51.0); %Monocytes 5.7 % (0.0-10.0); Hemoglobin 13.8 g/dL (12.0-16.0); Mean Corpuscular HGB CONC 33.2 g/dL (32.0-36.0); Mean Corpuscular Hemoglobin 28.7 pg (27.0-31.0); Mean Corpuscular Volume 86.3 fL (78.0-98.0); Mean Platelet Volume 7.6 fL (7.4-10.4); Platelet Count 295 thou/uL (130-400); RBC Distribution Width 13.2 % (11.5-14.5); Red Blood Cell (RBC) Count 4.82 mill/uL (4.20-5.40); White Blood Cell (WBC) Count 6.3 thou/uL (4.8-10.8)
[2019-08-23 15:45] LABS: Anion Gap 15 mmol/L (10-20); BUN (Urea Nitrogen) 24 mg/dL (9.8-20.1); Calc. Creatinine Clearance 0 mL/min (70-130); Calcium 9.6 mg/dL (7.8-10.44); Carbon Dioxide 23 mmol/L (23-31); Chloride 106 mmol/L (98-107); Estimated GFR-MDRD 39; Glucose 251 mg/dL (83-110); Potassium 4.1 mmol/L (3.5-5.1); Sodium 140 mmol/L (136-145)
== END 2019-08-23 14:16 | disposition home or self-care (01) ==
LOC: LABBT 14:15
PROVIDERS: ATTEND Orthopaedic Surgery
DX: Z01.818 Encounter for other preprocedural examination (principal); M19.012 Primary osteoarthritis, left shoulder
CPT/HCPCS: 80048; 85025; 87081; 93005; 93010

== ENCOUNTER 2019-08-23 14:30 | Inpatient (IN) | payer BC, MEDICARE ==
[2019-08-23 15:23] VITALS: BMI 29.0
[2019-08-31] MEDS ORDERED: Tranexamic Acid 1,000 MG/10 ML VIAL ONE (07:54)
[2019-08-31] MEDS ORDERED: Sodium Chloride 0.9% 100 ML ONE (07:54)
[2019-08-31] MEDS ORDERED: Midazolam HCl 2 mg/2 ml Vial ONE (08:13)
[2019-08-31] MEDS ORDERED: Fentanyl 100 MCG/2 ML VIAL ONE ×2 (08:13→10:42)
[2019-08-31] MEDS ORDERED: Ondansetron PF 4 MG/2 ML Vial IVP PRN (10:01)
[2019-08-31] MEDS ORDERED: Ropivacaine 0.2% 550 ML 550 ML NERVE BLCK SCH (10:01)
[2019-08-31] MEDS ORDERED: HYDROcodone/Acetaminophen 10/325 mg Tablet PO PRN (10:01)
[2019-08-31] MEDS ORDERED: traMADol HCl 50 MG TAB PO PRN ×2 (10:01)
[2019-08-31] MEDS ORDERED: Zolpidem Tartrate 5 MG TAB PO PRN (10:01)
[2019-08-31] MEDS ORDERED: Promethazine HCl 25 MG/ML VIAL IM PRN ×2 (10:01→12:46)
[2019-08-31] MEDS ORDERED: Fentanyl 100 MCG/2 ML VIAL IV PRN (10:02)
[2019-08-31] MEDS ORDERED: Acetaminophen 325 MG TAB PO PRN (10:03)
[2019-08-31] MEDS ORDERED: Dextrose 5 %-0.45 % NaCl 1,000 ML IV SCH (10:30)
[2019-08-31] MEDS ORDERED: Ondansetron HCl/PF 4 MG/2 ML Vial IVP PRN (12:46)
[2019-08-31] MEDS ORDERED: Promethazine HCl 25 MG/ML VIAL SLOW IVP PRN (12:46)
[2019-08-31] MEDS ORDERED: Ropivacaine 0.2% HCl/PF (40 MG/20 ML VIAL) ONE (13:19)
[2019-08-31] MEDS ORDERED: PHENYLEPHRINE-NS 100 MCG/ML 10 ML SYRINGE ONE (13:19)
[2019-08-31] MEDS ORDERED: Ondansetron PF 4 MG/2 ML Vial ONE (13:19)
[2019-08-31] MEDS ORDERED: Rocuronium Bromide 10 MG/ML (10ML VIAL) ONE (13:19)
[2019-08-31] MEDS ORDERED: Lidocaine 1% PF 5 ML VIAL ONE (13:19)
[2019-08-31] MEDS ORDERED: Bupivacaine HCl 0.5%/Epinephrine 1:200,000/PF 30 ml Vial ONE (13:19)
[2019-08-31] MEDS ORDERED: PROPOFOL 200 MG/20 ML VIAL ONE (13:19)
[2019-08-31] MEDS ORDERED: Glycopyrrolate 0.2 MG/ML 5 ML SYRINGE ONE (13:19)
[2019-08-31] MEDS ORDERED: ePHEDrine/0.9% NaCl/PF SYRINGE 50 mg/10 ml ONE (13:19)
[2019-08-31] MEDS: CEFAZOLIN 2 GM in Premix Bag 1 BAG IVPB SCH ×2 (15:40→23:41)
[2019-08-31] MEDS: metFORMIN 500 MG TAB PO SCH (18:18)
[2019-08-31] MEDS ORDERED: Vancomycin HCl 1 GM in Premix Bag 1 BAG IVPB SCH (20:00)
[2019-08-31] MEDS: Propafenone HCl 150 MG TAB PO SCH (20:32)
[2019-08-31] MEDS ORDERED: Polyethylene Glycol 3350 17 GM Packet PO PRN (20:36)
--- NOTE | 2019-08-31 20:40 | PDOC.HOSPP ---
- Subjective Encounter Date: 08/31/19 Encounter Time: 20:38 Subjective: Patient seen and examined for med mngt. No CP/SOB. Pain controlled. No new complaints. No overnight events - Objective Vital Signs & Weight: Vital Signs (12 hours) Temp Pulse Resp BP Pulse Ox 08/31/19 19:48 97.9 F 94 16 117/72 94 L 08/31/19 14:20 97.7 F 58 L 18 102/49 L 97 Weight Weight 169 lb Result Diagrams: 09/01/19 05:21 Additional Labs: Laboratory Tests 06/23/19 08/23/19 08:16 15:09 Sodium 140 Creatinine 1.32 H Hemoglobin A1c 6.6 H EKG Reviewed by me: Yes (SR) Hospitalist ROS - Review of Systems Respiratory: denies: cough, dry, shortness of breath, hemoptysis, SOB with excertion, pleuritic pain, sputum, wheezing, other Cardiovascular: denies: chest pain, palpitations, orthopnea, paroxysmal noc. dyspnea, edema, light headedness, other - Medication Medications: Active Medications Generic Name Dose Route Start Last Admin Trade Name Freq PRN Reason Stop Dose Admin Allopurinol 100 mg 08/31/19 21:00 08/31/19 20:31 Zyloprim PO 100 mg QPM LAURA Administration Cefazolin Sodium/Dextrose 2 gm 50 mls @ 100 mls/hr 08/31/19 16:00 08/31/19 15 :40 / Device IVPB 09/01/19 00:28 50 mls [id number] LAURA Administration Dextrose/Sodium Chloride 1,000 mls @ 65 mls/hr 08/31/19 10:30 08/31/19 15:41 D5 1/2 Ns IV 1,000 mls .[id number] LAURA Administration Vancomycin HCl 1 gm/ Device 200 mls @ 200 mls/hr 08/31/19 20:00 08/31/19 20: 31 IVPB 08/31/19 20:59 200 mls 2000 LAURA Administration Metformin HCl 500 mg 08/31/19 17:00 08/31/19 18:18 Glucophage PO 500 mg BID-WM LAURA Administration Ondansetron HCl 4 mg 08/31/19 10:01 08/31/19 15:40 Zofran IVP 4 mg Q6H PRN Administration Nausea/Vomiting Propafenone HCl 150 mg 08/31/19 21:00 08/31/19 20:32 Rythmol PO 150 mg BID LAURA Administration - Exam General Appearance: NAD Heart: RRR, no gallops Respiratory: CTAB, no rales Gastrointestinal: soft, non-tender, normal bowel sounds Extremities: no edema Hosp A/P - Plan DVT proph w/SCDs HTN Par Afib HLD 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 DPOA - self/family
[2019-08-31] MEDS: Famotidine 20 MG TAB PO SCH (20:44)
[2019-08-31] MEDS: Senokot S 8.6-50 MG TAB PO SCH (20:44)
[2019-08-31] MEDS ORDERED: Allopurinol 100 MG TAB PO SCH (21:00)
[2019-08-31] MEDS: HYDROcodone/Acetaminophen 10/325 mg Tablet PO PRN (23:46)
[2019-09-01 05:56] LABS: Anion Gap 11 mmol/L (10-20); BUN (Urea Nitrogen) 13 mg/dL (9.8-20.1); Calc. Creatinine Clearance 58 mL/min (70-130); Calcium 8.8 mg/dL (7.8-10.44); Carbon Dioxide 24 mmol/L (23-31); Chloride 105 mmol/L (98-107); Estimated GFR-MDRD 52; Glucose 160 mg/dL (83-110); Magnesium 1.9 mg/dL (1.6-2.6); Potassium 3.9 mmol/L (3.5-5.1); Sodium 136 mmol/L (136-145)
[2019-09-01] MEDS ORDERED: predniSONE 1 MG TAB PO SCH (08:00)
[2019-09-01] MEDS ORDERED: Ondansetron ODT 4 MG TAB PO PRN (08:32)
[2019-09-01] MEDS: metFORMIN 500 MG TAB PO SCH (09:26)
[2019-09-01] MEDS: Propafenone HCl 150 MG TAB PO SCH (09:27)
[2019-09-01] MEDS: Famotidine 20 MG TAB PO SCH (09:28)
[2019-09-01] MEDS: Senokot S 8.6-50 MG TAB PO SCH (09:28)
[2019-09-01] MEDS: HYDROcodone/Acetaminophen 10/325 mg Tablet PO PRN (09:29)
--- NOTE | 2019-09-01 09:49 | OP ---
DATE OF PROCEDURE: 08/31/2019 PREOPERATIVE DIAGNOSIS: Degenerative joint disease, left shoulder. POSTOPERATIVE DIAGNOSIS: Degenerative joint disease, left shoulder. PROCEDURES PERFORMED: Left total shoulder arthroplasty and biceps tenodesis using a 28 Perform Cortiloc small glenoid with a Flex stem 4B, Flex head 43 x 16 high offset. BARREL ENDSHAKER ADJUSTER: Irvin Hook PA-C BLOOD LOSS: 100. SPECIMEN: None. DRAIN: None. COMPLICATION: None. DESCRIPTION OF PROCEDURE: After standard deltopectoral approach, I examined the biceps tendon sheath which was inflamed and had a very thick bursal layer over the top with underlying ganglion. Biceps was opened. The biceps tendon sheath was opened. Biceps was in poor condition. It was taken off the superior glenoid tubercle and tacked and then tenodesed using #5 Ethibond suture to bone below the joint. The subscapularis was taken off using an osteotome to make a small lesser trochanteric osteotomy, tagged with four #5 Ethibond sutures. Head was dislocated. Osteophytes were trimmed. I released the anterior capsule, got the subscapularis to an elastic consistency. I then cut the humeral head at a 135-degree angle and trimmed the osteophytes. The head was then broached and sized appropriately. A trial prosthesis was left in the shaft and I approached the glenoid. Bone spurs were removed from around the glenoid. True center of the glenoid was identified. I made a single drill hole and reamed with an appropriate size reamer, trimmed osteophytes, punched the keel and did a trial reduction with the glenoid which appeared to be an appropriate fit. Trials were removed and irrigation was performed. The glenoid was punched into place and cement was allowed to cure. Extraneous cement was removed. Attention was turned back to the humerus where trial heads were used and the appropriate size was confirmed with the appropriate elasticity of the tissues. Trial was removed. Irrigation was performed. Four #5 Ethibond sutures were placed through the lesser tuberosity. The permanent implant was impacted into place. The subscapularis was repaired in a double-row fashion. The rotator interval was repaired with #1 Ethibond. Irrigation performed again. Deltopectoral interval was tacked closed with 0 Vicryl, subcutaneous closed with 2-0 Vicryl. The skin was closed with marika. Sterile dressings applied. The patient was placed in a sling. There were no complications. Job ID: [id number]
[2019-09-01 11:48] VITALS: TEMP 98.1
[2019-09-01 13:36] VITALS: BP 111/70
[2019-09-01] MEDS ORDERED: Calcium Carbonate + Vit D 1 TAB PO SCH (17:00)
[2019-09-02] MEDS ORDERED: Multivit, Therapeutic 1 TAB PO SCH (09:00)
== END 2019-09-01 13:08 | disposition home or self-care (01) | DRG 483 ==
LOC: SURG A 08-31 07:26 → SURG B 08-31 14:46
PROVIDERS: ADMIT Orthopaedic Surgery; ATTEND Orthopaedic Surgery
PROC: 0RRK0JZ Replacement of Left Shoulder Joint with Synthetic Substitute, Open Approach (ICD-10-PCS; principal; 2019-08-31)
PROC: 0LS40ZZ Reposition Left Upper Arm Tendon, Open Approach (ICD-10-PCS; 2019-08-31)
DX: M19.012 Primary osteoarthritis, left shoulder (principal); M19.011 Primary osteoarthritis, right shoulder; I48.0 Paroxysmal atrial fibrillation; E78.5 Hyperlipidemia, unspecified; E11.22 Type 2 diabetes mellitus with diabetic chronic kidney disease; I12.9 Hypertensive chronic kidney disease with stage 1 through stage 4 chronic kidney disease, or unspecified chronic kidney disease; N18.3 Chronic kidney disease, stage 3 (moderate); M10.9 Gout, unspecified; J30.2 Other seasonal allergic rhinitis; G56.03 Carpal tunnel syndrome, bilateral upper limbs; Z79.52 Long term (current) use of systemic steroids; Z90.712 Acquired absence of cervix with remaining uterus; Z79.84 Long term (current) use of oral hypoglycemic drugs; Z79.899 Other long term (current) drug therapy; Z88.8 Allergy status to other drugs, medicaments and biological substances
CPT/HCPCS: 36415; 80048; 83735; A4306; C1713; J0670; J0690; J2001; J2250; J2405; J2704; J2795; J3010; J3370; J3490; J7512

== ENCOUNTER 2020-01-22 06:09 | Outpatient (CLI) | payer BC, MEDICARE, OTHER ==
[2020-01-22 13:09] LABS: #Basophils 0.1 thou/uL (0.0-0.2); #Eosinphils 0.1 thou/uL (0.0-0.7); #Lymphocytes 1.7 thou/uL (1.20-3.40); #Monocytes 0.6 thou/uL (0.11-0.59); #Neutrophils 5.5 thou/uL (1.40-6.50); %Basophils 0.7 % (0.0-1.0); %Eosinophils 1.5 % (0.0-10.0); %Lymphocytes 21.4 % (21.0-51.0); %Monocytes 7.1 % (0.0-10.0); %Neutrophils 69.3 % (42.0-75.0); Mean Corpuscular HGB CONC 31.5 g/dL (32.0-36.0); Mean Corpuscular Hemoglobin 27.9 pg (27.0-31.0); Mean Corpuscular Volume 88.7 fL (78.0-98.0); Platelet Count 221 thou/uL (130-400); RBC Distribution Width 13.2 % (11.5-14.5); White Blood Cell (WBC) Count 7.9 thou/uL (4.8-10.8)
[2020-01-22 13:27] LABS: Anion Gap 12 mmol/L (10-20); BUN (Urea Nitrogen) 20 mg/dL (9.8-20.1); Calc. Creatinine Clearance 0 mL/min (70-130); Calcium 9.6 mg/dL (7.8-10.44); Carbon Dioxide 26 mmol/L (23-31); Chloride 106 mmol/L (98-107); Estimated GFR-MDRD 53; Glucose 111 mg/dL (83-110); Potassium 4.3 mmol/L (3.5-5.1); Sodium 140 mmol/L (136-145)
--- NOTE | 2020-01-22 16:12 | EKG ---
Test Reason : Blood Pressure : / mmHG Vent. Rate : 065 BPM Atrial Rate : 065 BPM P-R Int : 196 ms QRS Dur : 136 ms QT Int : 426 ms P-R-T Axes : 031 002 013 degrees QTc Int : 443 ms Normal sinus rhythm Right bundle branch block Cannot rule out Anterior infarct , age undetermined Abnormal ECG When compared with ECG of 23-AUG-2019 15:01, Minimal criteria for Anterior infarct are now Present No significant change was found Confirmed by KOTA ALONSO, DR. Diane ([id number]) on 01/22/2020 4:12:20 PM Referred By: GITA Confirmed By:DR. Benedicto ESCUDERO MD
[2020-01-22 18:13] LABS: SARS-CoV-2 MS2 Positive; SARS-CoV-2 N Gene Negative; SARS-CoV-2 S Gene Negative; SARS-CoV-2 orf1ab Negative
== END 2020-01-22 06:10 | disposition home or self-care (01) ==
LOC: LABBT 06:09
PROVIDERS: ATTEND Orthopaedic Surgery
DX: Z01.818 Encounter for other preprocedural examination (principal); Z11.59 Encounter for screening for other viral diseases; M19.011 Primary osteoarthritis, right shoulder
CPT/HCPCS: 80048; 85025; 87081; 87635; 93005; 93010; U0003

== ENCOUNTER 2020-01-25 06:03 | Day surgery (SDC) | payer BC, MEDICARE, OTHER ==
[2020-01-22 10:04] VITALS: BMI 27.9
[2020-01-25] MEDS ORDERED: Fentanyl 100 MCG/2 ML VIAL ONE (06:40)
[2020-01-25] MEDS ORDERED: Midazolam HCl 2 mg/2 ml Vial ONE (06:40)
[2020-01-25] MEDS ORDERED: Lidocaine 1% (PF) 30 ML VIAL ONE (07:11)
[2020-01-25] MEDS ORDERED: Sodium Chloride 0.9% 100 ML ONE (07:12)
[2020-01-25] MEDS ORDERED: Tranexamic Acid 1,000 MG/10 ML VIAL ONE (07:12)
[2020-01-25] MEDS ORDERED: Vancomycin 1.5 GRAM/300 ML BAG 1.5 GM/300 ML BAG ONE (07:12)
[2020-01-25] MEDS ORDERED: Scopolamine 1.5 mg/72 hour Patch ONE (07:13)
[2020-01-25] MEDS ORDERED: Ketorolac Tromethamine 30 MG/ML VIAL IVP PRN (07:37)
[2020-01-25] MEDS ORDERED: traMADol HCl 50 MG TAB PO PRN ×2 (07:37)
[2020-01-25] MEDS ORDERED: Acetaminophen 325 MG TAB PO PRN (07:37)
[2020-01-25] MEDS ORDERED: Promethazine HCl 25 MG/ML VIAL IM PRN (07:37)
[2020-01-25] MEDS ORDERED: Ropivacaine 0.2% 550 ML 550 ML NERVE BLCK SCH (07:37)
[2020-01-25] MEDS ORDERED: Zolpidem Tartrate 5 MG TAB PO PRN (07:37)
[2020-01-25] MEDS ORDERED: Ondansetron PF 4 MG/2 ML Vial IVP PRN (07:37)
[2020-01-25] MEDS ORDERED: HYDROcodone/Acetaminophen 10/325 mg Tablet PO PRN ×2 (07:37)
[2020-01-25] MEDS ORDERED: Fentanyl 100 MCG/2 ML VIAL SLOW IVP PRN (07:38)
[2020-01-25] MEDS ORDERED: Ondansetron PF 4 MG/2 ML Vial ONE (12:11)
[2020-01-25] MEDS ORDERED: PROPOFOL 200 MG/20 ML VIAL ONE (12:11)
[2020-01-25] MEDS ORDERED: PHENYLEPHRINE-NS 100 MCG/ML 10 ML SYRINGE ONE (12:11)
[2020-01-25] MEDS ORDERED: Ropivacaine 0.5% HCl/PF (150 MG/30 ML VIAL) ONE (12:11)
[2020-01-25] MEDS ORDERED: Dexamethasone 20 MG/5 ML VIAL ONE (12:11)
[2020-01-25] MEDS ORDERED: Ropivacaine 0.2% HCl/PF (40 MG/20 ML VIAL) ONE (12:11)
[2020-01-25] MEDS ORDERED: Rocuronium Bromide 10 MG/ML (10ML VIAL) ONE (12:11)
--- NOTE | 2020-01-26 12:14 | OP ---
DATE OF PROCEDURE: 01/25/2020 PREOPERATIVE DIAGNOSIS: Degenerative joint disease of the right shoulder. POSTOPERATIVE DIAGNOSES: 1. Degenerative joint disease of the right shoulder. 2. Biceps tendinitis. PROCEDURES PERFORMED: Right total shoulder arthroplasty and biceps tenodesis. IMPLANTS USED: Krossover Tornier Flex 4B stem, 41-mm high offset head x 15 glenoid as a Cortiloc small 40. BLOOD LOSS: Minimal. SPECIMEN: None. DRAINS: None. COMPLICATION: None. DESCRIPTION OF PROCEDURE: After standard deltopectoral approach, I examined the biceps tendon sheath which was inflamed and had a very thick bursal layer over the top with underlying ganglion. Biceps was opened. The biceps tendon sheath was opened. Biceps was in poor condition. It was taken off the superior glenoid tubercle and tacked and then tenodesed using #5 Ethibond suture to bone below the joint. The subscapularis was taken off using an osteotome to make a small lesser trochanteric osteotomy, tagged with four #5 Ethibond sutures. Head was dislocated. Osteophytes were trimmed. I released the anterior capsule, got the subscapularis to an elastic consistency. I then cut the humeral head at a 135-degree angle and trimmed the osteophytes. The head was then broached and sized appropriately. A trial prosthesis was left in the shaft and I approached the glenoid. Bone spurs were removed from around the glenoid. True center of the glenoid was identified. I made a single drill hole and reamed with an appropriate size reamer, trimmed osteophytes, punched the keel and did a trial reduction with the glenoid which appeared to be an appropriate fit. Trials were removed and irrigation was performed. The glenoid was punched into place and cement was allowed to cure. Extraneous cement was removed. Attention was turned back to the humerus where trial heads were used and the appropriate size was confirmed with the appropriate elasticity of the tissues. Trial was removed. Irrigation was performed. Four #5 Ethibond sutures were placed through the lesser tuberosity. The permanent implant was impacted into place. The subscapularis was repaired in a double-row fashion. The rotator interval was repaired with #1 Ethibond. Irrigation performed again. Deltopectoral interval was tacked closed with 0 Vicryl, subcutaneous closed with 2-0 Vicryl. The skin was closed with marika. Sterile dressings applied. The patient was placed in a sling. There were no complications. Job ID: [id number]
== END 2020-01-25 13:18 | disposition home or self-care (01) ==
LOC: SDC 06:03
PROVIDERS: ATTEND Orthopaedic Surgery
PROC: 0LS30ZZ Reposition Right Upper Arm Tendon, Open Approach (ICD-10-PCS; principal; 2020-01-25)
PROC: 0RRJ0JZ Replacement of Right Shoulder Joint with Synthetic Substitute, Open Approach (ICD-10-PCS; principal; 2020-01-25)
DX: M19.011 Primary osteoarthritis, right shoulder (principal); M75.21 Bicipital tendinitis, right shoulder; G89.18 Other acute postprocedural pain; I10 Essential (primary) hypertension; E11.9 Type 2 diabetes mellitus without complications; K21.9 Gastro-esophageal reflux disease without esophagitis; Z79.01 Long term (current) use of anticoagulants; Z79.84 Long term (current) use of oral hypoglycemic drugs; Z79.899 Other long term (current) drug therapy; Z88.8 Allergy status to other drugs, medicaments and biological substances
CPT/HCPCS: A4306; C1713; J0690; J1100; J2001; J2250; J2405; J2704; J2795; J3010; J3370; J3490

== ENCOUNTER 2021-06-13 18:29 | Emergency (ER) | payer BC, MEDICARE, OTHER ==
[2021-06-13] MEDS ORDERED: Diltiazem 125 MG/25 ML ONE (19:04)
[2021-06-13 19:08] LABS: #Basophils 0.1 thou/uL (0.0-0.2); #Eosinphils 0.1 thou/uL (0.0-0.7); #Lymphocytes 2.7 thou/uL (1.20-3.40); #Monocytes 0.5 thou/uL (0.11-0.59); #Neutrophils 2.4 thou/uL (1.40-6.50); %Basophils 1.5 % (0.0-1.0); %Eosinophils 1.6 % (0.0-10.0); %Lymphocytes 46.3 % (21.0-51.0); %Monocytes 8.6 % (0.0-10.0); Hemoglobin 14.1 g/dL (12.0-16.0); Mean Corpuscular HGB CONC 34.9 g/dL (32.0-36.0); Mean Corpuscular Hemoglobin 31.3 pg (27.0-31.0); Mean Corpuscular Volume 89.5 fL (78.0-98.0); Mean Platelet Volume 7.5 fL (7.4-10.4); Platelet Count 211 thou/uL (130-400); RBC Distribution Width 12.1 % (11.5-14.5); Red Blood Cell (RBC) Count 4.52 mill/uL (4.20-5.40); White Blood Cell (WBC) Count 5.7 thou/uL (4.8-10.8)
[2021-06-13 19:30] LABS: ALT (SGPT) 16 U/L (8-55); AST (SGOT) 15 U/L (5-34); Albumin 3.9 g/dL (3.4-4.8); Alkaline Phosphatase 86 U/L (40-110); Anion Gap 9 mmol/L (10-20); BUN (Urea Nitrogen) 21 mg/dL (9.8-20.1); Bilirubin, Total 0.2 mg/dL (0.2-1.2); Calc. Creatinine Clearance 0 mL/min (70-130); Calcium 9.7 mg/dL (7.8-10.44); Carbon Dioxide 28 mmol/L (23-31); Chloride 105 mmol/L (98-107); Glucose 199 mg/dL (83-110); Potassium 3.8 mmol/L (3.5-5.1); Protein, Total 6.9 g/dL (5.8-8.1); Sodium 138 mmol/L (136-145)
[2021-06-13 19:50] LABS: Prothrombin Time 13.3 sec (12.0-14.7)
[2021-06-13 20:23] LABS: Bacteria/HPF 1+ HPF (None Seen); Bilirubin Negative (Negative); Blood, Urine Negative (Negative); Clarity Clear (Clear); Glucose, Urine (Dipstick) Normal (Negative); Ketone, Urine Negative (Negative); Leukocyte 500 Leu/uL (Negative); Nitrite Negative (Negative); Protein, Urine (Dipstick) Negative (Neg-Trace); RBC/HPF 0-3 HPF (0-3); Specific Gravity, Urine 1.009 (1.002-1.036); Squamous Epithelial 0-3 HPF (0-3); Urobilinogen Normal mg/dL (Less than 2); WBC/HPF Greater than 50 HPF (0-3); pH, Urine 5.5 (5.0-9.0)
== END 2021-06-13 22:02 | disposition home or self-care (01) ==
LOC: ERS 18:29
DX: I48.20 Chronic atrial fibrillation, unspecified (principal); I10 Essential (primary) hypertension; E11.9 Type 2 diabetes mellitus without complications; E78.00 Pure hypercholesterolemia, unspecified; Z79.84 Long term (current) use of oral hypoglycemic drugs; Z79.01 Long term (current) use of anticoagulants; Z79.899 Other long term (current) drug therapy
CPT/HCPCS: 71045; 80053; 81003; 81015; 83880; 84443; 84484; 85025; 85610; 85730; 93005; 94760; 96365; 96366; 96376

== ENCOUNTER 2021-08-19 09:43 | Outpatient (CLI) | payer BC, MEDICARE, OTHER | END 2021-08-19 09:44 | disposition home or self-care (01) | LOC: BICRAD 09:43 | PROVIDERS: ATTEND Internal Medicine Rheumatology | DX: M13.0 Polyarthritis, unspecified (principal); M54.40 Lumbago with sciatica, unspecified side; M47.816 Spondylosis without myelopathy or radiculopathy, lumbar region; M43.16 Spondylolisthesis, lumbar region | CPT/HCPCS: 72100 ==

== ENCOUNTER 2021-11-06 14:17 | Outpatient (CLI) | payer BC, MEDICARE, OTHER | END 2021-11-06 14:18 | disposition home or self-care (01) | LOC: BICMAMMO 14:17 | PROVIDERS: ATTEND Family Medicine | DX: N63.20 Unspecified lump in the left breast, unspecified quadrant (principal) | CPT/HCPCS: 77066; G0279 ==

== ENCOUNTER 2023-04-19 12:09 | Outpatient (CLI) | payer MEDICARE, OTHER | END 2023-04-19 12:10 | disposition home or self-care (01) | LOC: RAD 12:09 | PROVIDERS: ATTEND Internal Medicine Rheumatology | DX: M25.461 Effusion, right knee (principal); M10.9 Gout, unspecified; M25.862 Other specified joint disorders, left knee; M25.861 Other specified joint disorders, right knee | CPT/HCPCS: 73565 ==

== ENCOUNTER 2023-05-10 09:49 | Outpatient (CLI) | payer MEDICARE, OTHER | END 2023-05-10 09:50 | disposition home or self-care (01) | LOC: BICMRI 09:49 | PROVIDERS: ATTEND Internal Medicine Rheumatology | DX: M25.461 Effusion, right knee (principal); S83.231A Complex tear of medial meniscus, current injury, right knee, initial encounter; M94.8X6 Other specified disorders of cartilage, lower leg; S83.411A Sprain of medial collateral ligament of right knee, initial encounter; M79.89 Other specified soft tissue disorders ==

== ENCOUNTER 2023-08-26 08:49 | Outpatient (CLI) | payer MEDICARE, OTHER ==
[2023-08-26 10:00] LABS: #Basophils 0.1 10x3/uL (0.0-0.2); #Eosinphils 0.1 10x3/uL (0.0-0.5); #Monocytes 0.4 10x3/uL (0.0-1.1); %Basophils 0.9 % (0.0-2.0); %Eosinophils 2.1 % (0.0-6.0); %Lymphocytes 33.5 % (18.0-47.0); %Monocytes 7.2 % (0.0-10.0); %Neutrophils 56.1 % (40.0-75.0); Hemoglobin 14.2 g/dL (12.0-15.5); Mean Corpuscular Hemoglobin 30.5 pg (27.0-33.0); Mean Corpuscular Volume 92.3 fl (81.6-98.3); Mean Platelet Volume 10.5 fl (7.4-10.4); Platelet Count 255 10x3/uL (150-450); RBC Distribution Width 12.8 % (11.5-14.5); Red Blood Cell (RBC) Count 4.66 10x6/uL (3.90-5.03); White Blood Cell (WBC) Count 5.3 10x3/uL (3.5-10.5)
[2023-08-26 10:08] LABS: Anion Gap 16 mmol/L (10-20); BUN (Urea Nitrogen) 22 mg/dL (9.8-20.1); Calc. Creatinine Clearance 0 mL/min (70-130); Carbon Dioxide 25 mmol/L (23-31); Chloride 103 mmol/L (98-107); Estimated GFR 56; Glucose 142 mg/dL (83-110); Potassium 3.9 mmol/L (3.5-5.1); Sodium 140 mmol/L (136-145)
[2023-08-26 10:11] LABS: Prothrombin Time 10.8 sec (9.5-12.1)
== END 2023-08-26 08:50 | disposition home or self-care (01) ==
LOC: LABBT 08:49
PROVIDERS: ATTEND Orthopaedic Surgery
DX: Z01.812 Encounter for preprocedural laboratory examination (principal); M17.11 Unilateral primary osteoarthritis, right knee
CPT/HCPCS: 80048; 85025; 85610; 87081

== ENCOUNTER 2024-06-20 10:27 | Outpatient (CLI) | payer MEDICARE, OTHER ==
[2024-06-20 12:46] LABS: #Basophils 0.04 10x3/uL (0.0-0.2); %Basophils 0.9 % (0.0-1.0); %Eosinophils 1.6 % (0.0-10.0); %Monocytes 6.9 % (0.0-10.0); %Neutrophils 52.4 % (42.0-75.0); Hematocrit 42.2 % (36.0-47.0); Hemoglobin 13.7 g/dL (12.0-16.0); Mean Corpuscular HGB CONC 32.5 g/dL (32.0-36.0); Mean Corpuscular Hemoglobin 29.4 pg (27.0-31.0); Mean Corpuscular Volume 90.6 fL (78.0-98.0); Mean Platelet Volume 10.4 fL (7.4-10.4); Platelet Count 245 10x3/uL (130-400); RBC Distribution Width 13.4 % (11.5-14.5); Red Blood Cell (RBC) Count 4.66 mill/uL (4.20-5.40)
[2024-06-20 12:59] LABS: INR-International Normal Ratio 1.2; PTT 36.2 sec (22.9-36.1); Prothrombin Time 14.9 sec (12.0-14.7)
[2024-06-20 13:11] LABS: Anion Gap 13 mmol/L (10-20); BUN (Urea Nitrogen) 25 mg/dL (9.8-20.1); Calc. Creatinine Clearance 0 mL/min (70-130); Calcium 10.6 mg/dL (7.8-10.44); Carbon Dioxide 27 mmol/L (23-31); Chloride 105 mmol/L (98-107); Estimated GFR 58; Glucose 85 mg/dL (83-110); Potassium 3.7 mmol/L (3.5-5.1); Sodium 141 mmol/L (136-145)
== END 2024-06-20 10:28 | disposition home or self-care (01) ==
LOC: LABBT 10:27
PROVIDERS: ATTEND Internal Medicine Cardiovascular Disease
DX: Z01.812 Encounter for preprocedural laboratory examination (principal); I48.0 Paroxysmal atrial fibrillation
CPT/HCPCS: 80048; 85025; 85610; 85730

== ENCOUNTER 2024-06-21 09:08 | Day surgery (SDC) | payer MEDICARE, OTHER ==
[2024-06-20 10:52] VITALS: BMI 25.9
[2024-06-21] MEDS ORDERED: Heparin 25,000 units/D5W 500 ML ONE (10:52)
[2024-06-21] MEDS ORDERED: Protamine Sulfate 50 MG/5 ML VIAL ONE (10:52)
[2024-06-21] MEDS ORDERED: Atropine Sulfate 1 mg/10 ml Syringe ONE (10:52)
[2024-06-21] MEDS ORDERED: Heparin 10,000 UNITS/ 10 ML VIAL ONE (10:52)
[2024-06-21] MEDS ORDERED: Ondansetron PF 4 MG/2 ML Vial ONE (13:11)
[2024-06-21] MEDS ORDERED: fentaNYL 50 mcg/mL 1 mL Vial ONE (13:12)
[2024-06-21] MEDS ORDERED: Rocuronium Bromide 10 MG/ML (10ML VIAL) ONE (13:12)
[2024-06-21] MEDS ORDERED: PROPOFOL 200 MG/20 ML VIAL ONE (14:08)
[2024-06-21] MEDS ORDERED: Lidocaine 1% PF 5 ML VIAL ONE (14:08)
[2024-06-21] MEDS ORDERED: PHENYLEPHRINE-NS 100 MCG/ML 10 ML SYRINGE ONE (14:08)
[2024-06-21] MEDS ORDERED: Glycopyrrolate 0.2 MG/ML 5 ML SYRINGE ONE (14:18)
[2024-06-21] MEDS ORDERED: Dexamethasone 20 MG/5 ML VIAL ONE (15:43)
[2024-06-21] MEDS ORDERED: Isoproterenol 0.2 MG/1 ML AMP ONE (15:59)
[2024-06-21] MEDS ORDERED: SUGAMMADEX SODIUM 200 MG/2 ML VIAL ONE (16:23)
== END 2024-06-21 21:10 | disposition home or self-care (01) ==
LOC: SDC 09:08
PROVIDERS: ATTEND Internal Medicine Cardiovascular Disease
PROC: 02583ZZ Destruction of Conduction Mechanism, Percutaneous Approach (ICD-10-PCS; principal; 2024-06-21)
PROC: 4A023FZ Measurement of Cardiac Rhythm, Percutaneous Approach (ICD-10-PCS; 2024-06-21)
PROC: 4A0234Z Measurement of Cardiac Electrical Activity, Percutaneous Approach (ICD-10-PCS; 2024-06-21)
DX: I48.0 Paroxysmal atrial fibrillation (principal); R00.0 Tachycardia, unspecified; I08.1 Rheumatic disorders of both mitral and tricuspid valves; I45.10 Unspecified right bundle-branch block; I10 Essential (primary) hypertension; E11.9 Type 2 diabetes mellitus without complications; E66.9 Obesity, unspecified; Z90.710 Acquired absence of both cervix and uterus; Z90.89 Acquired absence of other organs; Z79.899 Other long term (current) drug therapy; Z90.5 Acquired absence of kidney; Z79.01 Long term (current) use of anticoagulants; Z79.84 Long term (current) use of oral hypoglycemic drugs; Z68.25 Body mass index [BMI] 25.0-25.9, adult
CPT/HCPCS: 71045; 85347 ×2; 93623; 93656; 93657; C1730; C1732; C1733; C1759; C1760 ×2; C1766; C1894; J0461; J1100; J1644 ×2; J2405; J2704; J2720; J3010; C1769